=== PATIENT | male | born 1965 | race Caucasian/White ===

== ENCOUNTER → 2024-02-24 | Day surgery (SDC) | payer OTHER ==
[~2024-02-24] MED LIST: ALLEGRA ALLERGY60 MG PO; AMLODIPINE BESYL5 MG PO; LEXAPRO10 MG PO; MELOXICAM15 MG; ZYRTEC10 M3
[2024-02-24 15:50] VITALS: TEMP 97.6
[2024-02-24 16:00] LABS: WBC,FECAL (FECAL LACTOFERRIN) POSITIVE (NEGATIVE)
[2024-02-24 16:20] VITALS: BP 114/72; PULSE 60; RESP 16; O2SAT 97
[2024-02-25 09:58] LABS: C-REACTIVE PROTEIN 2 mg/L (0-10)
[2024-02-27 08:16] LABS: ENDOMYSIAL ANTIBODIES, IGA Negative (Negative)
[2024-02-27 09:36] LABS: IMMUNOGLOBULIN A 155 mg/dL (90-386); TISSUE TRANSGLUTAMINASE IGA AB <2 U/mL (0-3)
== END | disposition home or self-care (01) ==
LOC: OR 05:00
PROVIDERS: ATTEND Internal Medicine Gastroenterology
DX: R15.2 Fecal urgency (principal); K31.7 Polyp of stomach and duodenum; K29.70 Gastritis, unspecified, without bleeding; K20.90 Esophagitis, unspecified without bleeding; K44.9 Diaphragmatic hernia without obstruction or gangrene; K21.9 Gastro-esophageal reflux disease without esophagitis; R19.7 Diarrhea, unspecified; K62.89 Other specified diseases of anus and rectum; K64.8 Other hemorrhoids; Z71.3 Dietary counseling and surveillance; I10 Essential (primary) hypertension; Z71.89 Other specified counseling; R00.1 Bradycardia, unspecified; E78.5 Hyperlipidemia, unspecified; F41.9 Anxiety disorder, unspecified; F32.A Depression, unspecified; Z01.810 Encounter for preprocedural cardiovascular examination; Z79.1 Long term (current) use of non-steroidal anti-inflammatories (NSAID); Z79.899 Other long term (current) drug therapy; Z68.35 Body mass index [BMI] 35.0-35.9, adult; Z80.0 Family history of malignant neoplasm of digestive organs
CPT/HCPCS: 43239; 45380; 82784; 83516; 83630; 83993; 86140; 86256; 87045; 87177; 87324; 87328; 87449; 93005; J2470